=== PATIENT | male | born 1960 | race African-American/Black ===

== ENCOUNTER 2018-05-22 08:26 | Emergency (ER) | payer OTHER ==
[~2018-05-22] VITALS: Ht 193 cm; Wt 119.0 kg
[2018-05-22 08:29] VITALS: Ht 193 cm; Wt 119.0 kg
[2018-05-22] MEDS ORDERED: CEFEPIME 2GM/50 ML (PMX) 50 ML IVPB STA (09:18)
[2018-05-22] MEDS ORDERED: SODIUM CHLORIDE 0.9% 1L BAG IV* STA (09:18)
[2018-05-22] MEDS ORDERED: ACETAMINOPHEN 500 MG TAB PO STA (09:18)
[2018-05-22] MEDS ORDERED: VANCOMYCIN 1 GM (PMX) 250 ML IVPB ONE (09:30)
[2018-05-22] MEDS ORDERED: CARV6.25 PO (09:45)
[2018-05-22] MEDS ORDERED: LEVE-5 PO (09:45)
[2018-05-22] MEDS ORDERED: FER325 PO (09:46)
[2018-05-22] MEDS ORDERED: LOSA50TA14 PO (09:46)
[2018-05-22] MEDS ORDERED: AMLO-147 PO (09:46)
[2018-05-22] MEDS ORDERED: FOLI-49 PO (09:47)
[2018-05-22] MEDS ORDERED: ASPI-903 PO (09:47)
[2018-05-22] MEDS ORDERED: INSU300I SQ (09:48)
[2018-05-22] MEDS ORDERED: MOME13HF2 INHALATION (09:49)
[2018-05-22] MEDS ORDERED: EPIN15AE IH (09:50)
--- NOTE | 2018-05-22 10:15 | ERD ---
ER Documentation Chief Complaint Chief Complaint FEVER , CHILLS , SHAKING LT ARM HPI This is a 58-year-old male with a prior history of stroke with residual deficits of mobility. The patient is nonambulatory. The patient was having a cough for the past week. The patient's significant other at the bedside said he always has a cough but it has been worse lately with some white yellow productive sputum. This morning when they woke up he was having some shaking which she thought may be another stroke however he was found to have a fever here and this is likely just chills or Reiger. He has no new focal deficits whatsoever. She said this morning he was confused and did not know who she was in he thought she was his sister however now he is oriented. He is denying any headache or dysuria or GI symptoms. ROS All systems reviewed and are negative except as per history of present illness. Medications Home Meds Reported Medications Mometasone-Formoterol (Dulera) 100-5 Mcg - 13 Gm Hfa.aer.ad, 2 PUFFS INHALATION BID, #1 INHALER 05/22/18 Insulin Glargine,Hum.rec.anlog (Caridad Ramos) 300 Unit/1 Ml Insuln.pen, 8 UNIT SQ DAILY, EA 05/22/18 Folic Acid* (Folic Acid*) 1 Mg Tablet, 1 MG PO DAILY, TAB 05/22/18 Aspirin* (Aspirin* Chew) 81 Mg Tab.chew, 81 MG PO DAILY, TAB.CHEW 05/22/18 Ferrous Sulfate* (Ferrous Sulfate*) 325 Mg Tabec, 325 MG PO BID, TAB 05/22/18 Amlodipine Besylate* (Amlodipine Besylate*) 10 Mg Tablet, 10 MG PO DAILY, #30 TAB 05/22/18 Losartan Potassium* (Losartan Potassium*) 50 Mg Tablet, 50 MG PO DAILY, TAB 05/22/18 Carvedilol* (Coreg*) 6.25 Mg Tablet, 6.25 MG PO BID, #60 TAB 05/22/18 Levetiracetam* (Keppra*) 500 Mg Tablet, 500 MG PO BID, TAB 05/22/18 Discontinued Reported Medications Epinephrine (Bronchial Mist) 15 Ml Aer.refill, 1 DROP IH DAILY 05/22/18 Allergies Allergies: Coded Allergies: hydrochlorothiazide (Verified Allergy, Severe, FAINTED, 05/22/18) PER PT AND PMhx/Soc Medical and Surgical Hx: pt denies Surgical Hx History of Surgery: No Anesthesia Reaction: No Hx Neurological Disorder: Yes (stroke (2016)) Hx Respiratory Disorders: Yes (emphysema) Hx Cardiac Disorders: Yes (htn) Hx Psychiatric Problems: No Hx Miscellaneous Medical Probl: Yes (DM) Hx Alcohol Use: No Hx Substance Use: No Hx Tobacco Use: Yes (20 years ago) Smoking Status: Former smoker FmHx Family History: No coronary disease Physical Exam Vitals Vital Signs Date Temp Pulse Resp B/P (MAP) Pulse Ox O2 O2 Flow FiO2 Time Delivery Rate 05/22/18 98.3 90 17 121/69 97 Nasal 3.0 12:30 (86) Cannula 05/22/18 99.0 95 24 108/54 95 Nasal 3.0 11:04 (72) Cannula 05/22/18 100.6 09:40 05/22/18 100 26 128/74 97 Nasal 2.0 09:06 (92) Cannula 05/22/18 Nasal 2 09:00 Cannula 05/22/18 100.2 101 24 129/93 93 Room Air 08:45 (105) 05/22/18 99.6 86 18 138/66 99 08:29 (90) Physical Exam Const: Well-developed, well-nourished, coughing Head: Atraumatic, normocephalic Eyes: Normal Conjunctiva, PERRLA, EOMI, normal sclera, no nystagmus ENT: Normal External Ears, Nose and Mouth, moist mucus membranes. Neck: Full range of motion. No meningismus, no lymphadenopathy. Resp: Clear to auscultation bilaterally, no wheezing, rhonchi, rales Cardio: Regular rate and rhythm, no murmurs, S1 S2 present Abd: Soft, non tender x 4, non distended. Normal bowel sounds, no guarding or rebound, no pulsitile abdominal masses or bruits Skin: No petechiae or rashes, no ecchymosis , no maculopapular rash Back: No midline or flank tenderness Ext: No cyanosis, or edema, FROM x 4, normal inspection, neurovascularly intact x 4 Neur: Awake and alert, STR 4/5 x 4, sensation intact x 4, no focal findings, cerebellum intact Psych: Normal Mood and Affect Result Diagram: 05/22/18 0858 05/22/18 0858 Results 24 hrs Laboratory Tests Test 05/22/18 08:45 05/22/18 08:54 05/22/18 08:58 05/22/18 12:32 Bedside Glucose 163 mg/dL POC Venous Lactate 1.5 mmol/L White Blood Count 24.4 10^3/ul Red Blood Count 3.91 10^6/ul Hemoglobin 10.9 g/dl Hematocrit 34.4 % Mean Corpuscular 88.0 fl Volume Mean Corpuscular 27.9 pg Hemoglobin Mean Corpuscular 31.7 g/dl Hemoglobin Concent Red Cell 13.3 % Distribution Width Platelet Count 315 10^3/UL Mean Platelet 11.6 fl Volume Immature 0.800 % Granulocytes % Neutrophils % 84.4 % Lymphocytes % 6.1 % Monocytes % 8.1 % Eosinophils % 0.1 % Basophils % 0.5 % Nucleated Red Blood 0.0 /100WBC Cells % Immature 0.190 10^3/ul Granulocytes # Neutrophils # 20.6 10^3/ul Lymphocytes # 1.5 10^3/ul Monocytes # 2.0 10^3/ul Eosinophils # 0.0 10^3/ul Basophils # 0.1 10^3/ul Nucleated Red Blood 0.0 10^3/ul Cells # Prothrombin Time 13.9 Sec Prothrombin Time 1.1 Ratio INR International 1.06 Normalized Ratio Activated 37.8 Sec Partial Thromboplas t Time Sodium Level 139 mmol/L Potassium Level 5.3 mmol/L Chloride Level 103 mmol/L Carbon Dioxide 24 mmol/L Level Anion Gap 12 Blood Urea Nitrogen 29 mg/dl Creatinine 4.05 mg/dl Est Glomerular 19 mL/min Filtrat Rate mL/min Glucose Level 156 mg/dl Calcium Level 9.5 mg/dl Total Bilirubin 0.5 mg/dl Direct Bilirubin 0.00 mg/dl Indirect Bilirubin 0.5 mg/dl Aspartate Amino 20 IU/L Transf (AST/SGOT) Alanine 16 IU/L Aminotransferase (A LT/SGPT) Alkaline 91 IU/L Phosphatase Troponin I 0.018 ng/ml Total Protein 7.4 g/dl Albumin 3.9 g/dl Globulin 3.50 g/dl Albumin/Globulin 1.11 Ratio Bedside Urine pH 5.5 (LAB) Bedside Urine 3+ Protein (LAB) Bedside Urine Negative Glucose (UA) Bedside Urine Negative Ketones (LAB) Bedside Urine Blood 1+ Bedside Urine Negative Nitrite (LAB) Bedside Urine Negative Leukocyte Esterase (L Current Medications Medications Dose Sig/Kevin Start Time Status Last (Trade) Ordered Route PRN Stop Time Admin Dose Reason Admin Sodium 3,570 ml BOLUS OVER 2 05/22/18 DC 05/22/18 Chloride HOURS STAT 09:18 09:37 (NS) IV* 05/22/18 09:21 Cefepime HCl 50 ml @ ONCE STAT 05/22/18 DC 05/22/18 100 mls/hr IVPB 09:18 09:40 05/22/18 09:47 Vancomycin 250 ml @ ONCE ONCE 05/22/18 DC 05/22/18 HCl 125 mls/hr IVPB 09:30 10:25 05/22/18 11:29 1,000 mg ONCE STAT 05/22/18 DC 05/22/18 Acetaminophen PO 09:18 09:40 (Tylenol 05/22/18 09:21 Tab) Procedures/MDM EKG: Rate/Rhythm: Sinus rhythm heart rate 100, poor quality EKG QRS, ST, QT: NORMAL [place], QRS, QT] Impression: NORMAL EKG MR #: [id number] DOS: 05/22/18917 Ordering MD: TRAVON ERICKSON DO Location: E/R Room/Bed: PROCEDURE: XR Chest. CLINICAL INDICATION: shortness of breath TECHNIQUE: Single portable view of the chest was obtained COMPARISON: None FINDINGS: There is mild cardiomegaly. There is mild pulmonary vascular congestion. There are bilateral perihilar and lower lobe increased interstitial changes. There are bibasilar linear atelectatic changes. There are small bilateral pleural effusions. There is no pneumothorax. RPTAT: AA IMPRESSION: Mild cardiomegaly with pulmonary vascular congestion. Bibasilar linear atelectatic changes. .Daron Angel MD, MD Date Time Electronically viewed and signed by .Daron Angel MD, on 05/22/2018 09:55 .S/ CC: DRETRAVON AllenKelle HALLMAN [id number] MR #: [id number] DOS: 05/22/1818 Ordering MD: TRAVON ERICKSON DO Location: E/R Room/Bed: PROCEDURE: CT Brain without. CLINICAL INDICATION: Altered mental status TECHNIQUE: A CT of the brain was performed utilizing axial sections from the skull base through the vertex without contrast. The scan was reviewed in soft tissue brain and high frequency resolution bone algorithm windows. Images were reviewed on a high-resolution PACS workstation. The exam CTDI = 48.10 mGy, and the DLP = 838.84 mGy-cm. One or more of the following dose reduction techniques were used: Automated exposure control, adjustment of the mA and / or kV acco rding to patient size, or use of iterative reconstruction technique. DICOM images are available. COMPARISON: None available FINDINGS: There is mild prominence of the lateral ventricles and cerebral sulci, consistent with diffuse cerebral atrophy. There is no intracranial hemorrhage, midline shift, or mass effect. No abnormal extra-axial fluid collections are identified. There is hypoattenuation of the periventricular white matter. There are encephalomalacic changes of the right cerebellum, bilateral occipital lobes, left temporal lobe and left frontal lobe. There is a 1.3 cm hypoattenuating focus within the right thalamus. The basal cisterns are patent. The posterior fossa is unremarkable. Vascular calcifications are noted within the intracranial portions of the vertebral and internal carotid arteries. The visualized portions of the orbits are unremarkable. The paranasal sinuses and mastoid air cells are clear. No calvarial fracture or abnormality are identified. The soft tissues are unremarkable. IMPRESSION: 1. No acute intracranial abnormality identified. 2. Mild diffuse cerebral atrophy, greater than expected given patient's age. 3. Encephalomalacic changes of the right cerebellum, bilateral occipital lobes, left temporal and left frontal lobe, likely reflecting the sequela of prior ischemic changes. Consider MRI to exclude an acute on chronic process. 4. 1.3 cm right thalamic infarct, subacute to chronic. 4. Arterial atherosclerosis. RPTAT: HH .Nicci Jarrett MD, Date Time Electronically viewed and signed by .Nicci Jarrett MD, on 05/22/2018 11:10 .G/ CC: TARVON ERICKSON DO [id number] Patient's flu swab is negative. Urinalysis thus far does not show any signs of UTI and chest x-ray does not show any infiltrate. The patient may does have bronchitis however he has elevated white blood count 24.4 and had some confusion this morning. Probably better to watch him make sure he does not have any development into sepsis. Current lactic acid is normal. He also has elevated creatinine I do not know his baseline, but will admit for renal insufficiency eval Will admit to appropriate physician here Departure Diagnosis: Primary Impression: Leukocytosis Leukocytosis type: unspecified Qualified Codes: D72.829 - Elevated white blood cell count, unspecified Additional Impressions: Bronchitis Renal insufficiency Condition: Stable TRAVON ERICKSON DO May 22, 2018 10:15
--- NOTE | 2018-05-22 14:22 | EN ---
Date/Time of Note Date/Time of Note DATE: 05/22/18 TIME: 14:20 ER Progress Note I discussed the patients and his findings with the receiving physician Dr. Parmar from [facility]. He was made aware of the lab, the treatment, the patient condition. He accepted patient. He will be transferred via ambulance MARLENI DE LUNA MD May 22, 2018 14:22
[2018-05-22 18:00] VITALS: BP 150/84; PULSE 89; RESP 21
== END 2018-05-22 18:45 | disposition short-term general hospital (02) ==
LOC: E/R 08:26
DX: D72.829 Elevated white blood cell count, unspecified (principal); J40 Bronchitis, not specified as acute or chronic; N28.9 Disorder of kidney and ureter, unspecified; I10 Essential (primary) hypertension; E11.9 Type 2 diabetes mellitus without complications; R94.02 Abnormal brain scan; R06.02 Shortness of breath; Z87.891 Personal history of nicotine dependence; Z79.82 Long term (current) use of aspirin; Z79.4 Long term (current) use of insulin
CPT/HCPCS: 36415; 70450; 71045; 80053; 81001; 82962; 83605; 84484; 85025; 85610; 85730; 87040; 87086; 87400; 93005; 96361; 96365; 96366; 96368; J0692; J3370; J7030; Z7502; Z7610; 81003